=== PATIENT | female | born 1955 | race Caucasian/White ===

== ENCOUNTER 2017-01-04 07:09 | Emergency (ER) | payer MEDICARE, SELFPAY | END 2017-01-04 08:57 | disposition other institution (70) | LOC: ER 07:09 | DX: J18.9 Pneumonia, unspecified organism (principal); I50.9 Heart failure, unspecified; R50.9 Fever, unspecified; R06.02 Shortness of breath; R53.83 Other fatigue; R05 Cough; G89.29 Other chronic pain; M54.9 Dorsalgia, unspecified; G62.9 Polyneuropathy, unspecified; E11.9 Type 2 diabetes mellitus without complications; I10 Essential (primary) hypertension; F41.9 Anxiety disorder, unspecified; F32.9 Major depressive disorder, single episode, unspecified; K21.9 Gastro-esophageal reflux disease without esophagitis; I45.10 Unspecified right bundle-branch block; J81.1 Chronic pulmonary edema; Z79.891 Long term (current) use of opiate analgesic; Z79.899 Other long term (current) drug therapy; Z79.4 Long term (current) use of insulin; Z88.8 Allergy status to other drugs, medicaments and biological substances | CPT/HCPCS: 96365; 99284; 99284-25 ==

== ENCOUNTER 2017-01-04 07:09 | Inpatient (IN) | payer MEDICARE, SELFPAY ==
[~2017-01-04] VITALS: Ht 170.2 cm; Wt 128.0 kg
[2017-01-04 07:53] LABS: BASO % 0.2 % (0.1-1.2); EOS # 0.1 10_X3_uL (0.0-0.4); EOS % 0.5 % (0.7-5.8); GRAN # 13.2 10_X3_uL (1.6-6.1); GRAN % 86.5 % (34.0-71.1); HEMATOCRIT 38.3 % (34-45); HEMOGLOBIN 11.6 g/dL (11.2-15.7); LYMPH % 6.7 % (19.3-51.7); MEAN CORPUSCULAR HEMOGLOBIN 24.7 pg (27.0-33.0); MEAN CORPUSCULAR HGB CONC 30.3 g/dL (32.0-36.0); MEAN CORPUSCULAR VOLUME 81.5 fL (79-95); MEAN PLATELET VOLUME 9.4 fl (7.5-11.5); MONO # 0.9 10_X3_uL (0.2-0.9); MONO % 6.1 % (4.7-12.5); PLATELET COUNT 279 x10_3/uL (182-369); RED CELL DISTRIBUTION WIDTH 16.5 % (11.7-14.4); WHITE BLOOD COUNT 15.3 x10_3/uL (4.0-10.0)
[2017-01-04 08:09] LABS: ALBUMIN 3.7 gm/dL (3.4-5.0); ALKALINE PHOSPHATASE 99 U/L (50-136); ALT/SGPT 14 U/L (3.5-33.9); AST/SGOT 15 U/L (7.04-26.96); BILIRUBIN,TOTAL 0.42 mg/dL (0.0-1.0); BLOOD UREA NITROGEN 12 mg/dL (7-18); CALCIUM 8.7 mg/dL (8.7-10.7); CARBON DIOXIDE 25 mmol/L (21-32); CREATINE KINASE 157 U/L (21-215); CREATININE 0.7 mg/dL (0.6-1.3); GLUCOSE,RANDOM 211 mg/dL (70-99); POTASSIUM 3.8 mmol/L (3.5-5.1); SODIUM 138 mmol/L (136-145); TOTAL PROTEIN 7.1 gm/dL (6.4-8.2)
[2017-01-04 08:13] LABS: ARTERIAL BLD GAS O2 SATURATION 97.1 % (94-98); ARTERIAL BLOOD GAS BASE EXCESS 1.2 mmol/L (-2.0-3.0); ARTERIAL BLOOD GAS HCO3 25.2 mmol/L (22-26); ARTERIAL BLOOD GAS pH 7.42 (7.35-7.45)
[2017-01-04 12:02] LABS: URINE BILIRUBIN NEGATIVE (NEGATIVE); URINE BLOOD TRACE (NEGATIVE); URINE GLUCOSE (UA) 100 mg/dL (NORMAL); URINE KETONE TRACE (NEGATIVE); URINE LEUKOCYTE ESTERASE TRACE (NEGATIVE); URINE NITRATE NEGATIVE (NEGATIVE); URINE PROTEIN 1+ (NEGATIVE)
[2017-01-04 12:03] LABS: URINE AMORPHOUS SEDIMENT TRACE; URINE RBC 0-5 /[HPF] (0-2); URINE SQUAMOUS EPITHELIAL CELL 0-10 /[HPF] (NONE SEEN); URINE YEAST FEW (NONE SEEN)
[2017-01-04 12:04] LABS: URINE BACTERIA TRACE (NONE SEEN)
[2017-01-05 06:50] LABS: HEMATOCRIT 36.7 % (34-45); HEMOGLOBIN 11.3 g/dL (11.2-15.7); MEAN CORPUSCULAR HEMOGLOBIN 25.3 pg (27.0-33.0); MEAN CORPUSCULAR HGB CONC 30.8 g/dL (32.0-36.0); MEAN CORPUSCULAR VOLUME 82.1 fL (79-95); MEAN PLATELET VOLUME 9.5 fl (7.5-11.5); RED BLOOD COUNT 4.47 x10_6/uL (3.9-5.2); RED CELL DISTRIBUTION WIDTH 16.6 % (11.7-14.4); WHITE BLOOD COUNT 8.7 x10_3/uL (4.0-10.0)
[2017-01-05 07:28] LABS: BLOOD UREA NITROGEN 15 mg/dL (7-18); CREATININE 0.7 mg/dL (0.6-1.3); GLUCOSE,RANDOM 170 mg/dL (70-99)
[2017-01-05 07:29] LABS: CALCIUM 8.9 mg/dL (8.7-10.7); CARBON DIOXIDE 28 mmol/L (21-32); POTASSIUM 3.4 mmol/L (3.5-5.1); SODIUM 140 mmol/L (136-145)
[2017-01-06 07:06] LABS: HEMATOCRIT 37.2 % (34-45); HEMOGLOBIN 11.5 g/dL (11.2-15.7); MEAN CORPUSCULAR HEMOGLOBIN 25.6 pg (27.0-33.0); MEAN CORPUSCULAR HGB CONC 30.9 g/dL (32.0-36.0); MEAN CORPUSCULAR VOLUME 82.7 fL (79-95); MEAN PLATELET VOLUME 9.7 fl (7.5-11.5); RED BLOOD COUNT 4.5 x10_6/uL (3.9-5.2); RED CELL DISTRIBUTION WIDTH 16.5 % (11.7-14.4); WHITE BLOOD COUNT 8.1 x10_3/uL (4.0-10.0)
[2017-01-06 07:24] LABS: CALCIUM 9.4 mg/dL (8.7-10.7); CARBON DIOXIDE 29 mmol/L (21-32); CREATININE 0.7 mg/dL (0.6-1.3); GLUCOSE,RANDOM 174 mg/dL (70-99); POTASSIUM 3.7 mmol/L (3.5-5.1); SODIUM 141 mmol/L (136-145)
[2017-01-06 07:32] LABS: BLOOD UREA NITROGEN 20 mg/dL (7-18)
== END 2017-01-06 09:30 | disposition home or self-care (01) | DRG 195 ==
LOC: ER 07:09 → MS 08:57 → UNDODEPER 01-07 13:17
PROVIDERS: Emergency Medicine; ADMIT Family Medicine
DX: J18.9 Pneumonia, unspecified organism (principal); E11.9 Type 2 diabetes mellitus without complications; R06.02 Shortness of breath; R05 Cough; J34.89 Other specified disorders of nose and nasal sinuses; F41.9 Anxiety disorder, unspecified; I10 Essential (primary) hypertension; F32.9 Major depressive disorder, single episode, unspecified; K21.9 Gastro-esophageal reflux disease without esophagitis; G89.29 Other chronic pain; M54.9 Dorsalgia, unspecified; Z79.891 Long term (current) use of opiate analgesic; Z79.899 Other long term (current) drug therapy; Z79.4 Long term (current) use of insulin; Z88.8 Allergy status to other drugs, medicaments and biological substances; Z98.51 Tubal ligation status
CPT/HCPCS: 36415; 36600; 71010; 80048; 80053; 80061; 81001; 82550; 82553; 82803; 82962; 83036; 83605; 83880; 85025; 86738; 87040; 87070; 87086; 87186; 87205; 87400; 87449; 93005; 94640; 99070